=== PATIENT | female | born 1965 | race Caucasian/White ===

== ENCOUNTER 2023-10-12 07:15 | Outpatient (OUT) | payer OTHER, SELFPAY ==
[2023-10-12 07:36] LABS: Basophils Percent Auto 0.8 % (0.2-2.0); Eosinophils Absolute Auto 0.1 10^3/uL (0.0-0.7); Hematocrit 43.2 % (36.0-48.0); Hemoglobin 13.9 g/dL (12.0-16.0); Immature Granulocytes Abs Auto 0.01 10^3/uL (0.00-0.03); Immature Granulocytes Pct Auto 0.2 % (0.0-0.5); Lymphocytes Absolute Auto 1.6 10^3/uL (1.2-3.8); Lymphocytes Percent Auto 30.7 % (20.5-60.0); Mean Corpuscular HGB Conc 32.2 g/dL (29.9-35.2); Mean Corpuscular Volume 93.1 fL (81.0-99.0); Mean Platelet Volume 9.8 fL (9.5-13.5); Monocytes Absolute Auto 0.4 10^3/uL (0.3-0.8); Monocytes Percent Auto 6.8 % (1.7-12.0); Neutrophils Percent Auto 59.5 % (43.0-75.0); Platelet Count 358 10^3/uL (150-450); Red Blood Count 4.64 10^6/uL (4.20-5.40); Red Cell Distribution Width 13.2 % (11.0-15.0); White Blood Count 5.1 10^3/uL (4.0-11.0)
[2023-10-12 08:07] LABS: Estimated Average Glucose 111 mg/dL; Glycohemoglobin A1C 5.5 % (4.5-6.2)
[2023-10-12 08:19] LABS: Alanine Aminotransferase 32 U/L (14-59); Albumin Globulin Ratio 1.1; Albumin Level 3.7 g/dL (3.4-5.0); Alkaline Phosphatase 91 U/L (46-116); Anion Gap 11.2; Aspartate Amino Transferase 15 U/L (15-37); BUN Creatinine Ratio 19.5; Bilirubin Direct 0.1 mg/dL (0.0-0.2); Bilirubin Total 0.4 mg/dL (0.2-1.0); Calcium 8.8 mg/dL (8.5-10.1); Carbon Dioxide 28.5 mmol/L (21.0-32.0); Chloride 104 mmol/L (98-107); Cholesterol 203 mg/dL (<=200); Estimated GFR (African America >60 (>=60); Estimated GFR (Non-African Ame >60 (>=60); Free T3 2.82 pg/mL (2.18-3.98); Globulin 3.5 g/dL; Glucose 84 mg/dL (74-106); HDL Cholesterol 51 mg/dL (40-60); Potassium 3.7 mmol/L (3.5-5.1); Sodium 140 mmol/L (136-145); Thyroid Stimulating Hormone 0.087 uIU/mL (0.358-3.740); Total Protein 7.2 g/dL (6.4-8.2); Triglycerides 84 mg/dL (<=150); VLDL CHOLESTEROL 16.8 mg/dL
[2023-10-12 08:32] LABS: Free T4 1.27 ng/dL (0.76-1.46)
== END 2023-10-12 07:16 | disposition home or self-care (01) ==
LOC: LAB 07:19
PROVIDERS: PCP Family Medicine; Visit Provider Family Medicine
DX: Z00.00 Encounter for general adult medical examination without abnormal findings (principal); E03.9 Hypothyroidism, unspecified
CPT/HCPCS: 36415; 80048; 80061; 80076; 83036; 84439; 84443; 84481; 85025

== ENCOUNTER 2024-10-29 20:58 | Outpatient (REF) | payer OTHER, SELFPAY ==
--- OUTSIDE RECORDS SUMMARY | 2024-10-29 21:02 | XMS_ITS | CCD ---
Author Organization [facility] Care Team Providers [employer] Reading [employer] Name Role Phone Marybel Cohn Unavailable Jannette Butterfield Unavailable DR TITO AVELAR Admitting Unavailable VALENTINO, DR TITO De La Torre Attending Unavailable VALENTINO, DR TITO De La Torre Primary Care Unavailable WEST, DR LORNA Crenshaw Consulting Unavailable VALENTINO, DR TITO De La Torre Consulting Unavailable Tito Avelar MD Primary Care Provider Tito Avelar MD Unavailable TITO AVELAR Referring Unavailable TITO AVELAR Attending Unavailable Medications Current Medications Medication Drug Class(es) Dates Sig (Normalized) Sig (Original) ibuprofen 800 mg oral tablet (6 sources) Nonsteroidal Anti-inflammatory Drug Start: 10-22-2023 End: 10-21-2024 take 1 tablet by mouth in the morning, then take 1 tablet by mouth in the evening, then take 1 tablet by mouth at bedtime ibuprofen 800 MG tablet Indications: DDD (degenerative disc disease), lumbar Take 1 tablet (800 mg) by mouth in the morning and 1 tablet (800 mg) in the evening and 1 tablet (800 mg) before bedtime. 90 tablet 11 10/22/2023 10/21/2024 Active ibuprofen 800 MG tablet Take 400 mg by mouth every 6 (six) hours if needed for mild pain Active Motrin Not-Takin g levothyroxine sodium 0.1 mg oral tablet (7 sources) l-Thyroxine Start: 07-27-2024 take 1 tablet by mouth in the morning levothyroxine (Synthroid, Levoxyl) 100 MCG tablet Indications: Adult hypothyroidism (CMS/HCC) Take 1 tablet (100 mcg) by mouth in the morning. Take on an empty stomach.. 30 tablet 5 07/27/2024 Active Levothyroxine So dium Active lidocaine hydrochloride 20 mg/ml mucous membrane topical solution (1 source) Antiarrhythmic, Amide Local Anesthetic Start: 07-12-2022 Lidocaine Viscous 2% 5 ml swish around in mouth area and throat Mouth/Throat every 4 hours as needed Jul, Active 24 hr oxybutynin chloride 10 mg extended release oral tablet (7 sources) Cholinergic Muscarinic Antagonist Start: 10-22-2024 take 1 tablet by mouth once daily in the morning oxybutynin XL (Ditropan-XL) 10 MG 24 hr tablet Indications: Female stress incontinence TAKE 1 TABLET BY MOUTH ONCE DAILY IN THE MORNING 30 tablet 2 10/22/2024 Active Start: 07-27-2024 take 1 tablet by skye th once daily in the morning oxybutynin XL (Ditropan-XL) 10 MG 24 hr tablet Indications: Female stress incontinence TAKE 1 TABLET BY MOUTH EVERY MORNING 30 tablet 2 07/27/2024 Active Oxybutynin Activ e Problems Active Problems Problem Classification Problem Date Documented Date Episodic/Chronic Anxiety disorders (5 sources) Generalized anxiety disorder; Translations: [Generalized anxiety disorder] Onset: 10-07-2023 10-07-2023 Chronic Cancer of breast (2 sources) Personal history of malignant neoplasm of breast; Translations: [History of malignant neoplasm of breast] Onset: 10-11-2022 10-29-2024 Episodic Genitourinary symptoms and ill-defined conditions (5 sources) Female stress incontinence; Translations: [Stress incontinence (female) (male)] Onset: 10-07-2023 10-07-2023 Chronic Headache; including migraine (5 sources) Migraine without aura, not refractory ; Translations: [Migraine without aura, not intractable, without status migrainosus] Onset: 10-07-2023 10-07-2023 Chronic Immunizations and screening for infectious disease (2 sources) Contact with and (suspected) exposure to other viral communicable diseases; Translations: [Contact with and (suspected) exposure to other viral communicable diseases] Episodic Influenza (1 source) Influenza due to other identified influenza virus with other respiratory manifestations Episodic Other screening for suspected conditions (not mental disorders or infectious disease) (1 source) Encounter for screening mammogram for malignant neoplasm of breast; Translations: [ENC SCR MAMMO MALIG NEOPLASM BREAST] Onset: 03-02-2023 Episodic Other upper respiratory disease (2 sources) Allergic rhinitis; Translations: [Allergic rhinitis, unspecified] Chronic Prolapse of female genital organs (7 sources) Prolapse of female genital organs; Translations: [Female genital prolapse, unspecified] Onset: 07-28-2024 07-28-2024 Chronic Residual codes; unclassified (1 source) Family history of malignant neoplasm of trachea, bronchus and lung; Translations: [FAM HX MALIG NEOPLSM TRACH BRON LNG] Onset: 10-11-2022 Episodic Spondylosis; intervertebral disc disorders; other back problems (5 sources) Degeneration of lumbar intervertebral disc; Translations: [DDD (degenerative disc disease), lumbar] Onset: 10-07-2023 10-07-2023 Chronic Spondylosis; intervertebral disc disorders; other back problems (2 sources) Sciatica; Translations: [Sciatica, left side] Episodic Thyroid disorders (6 sources) Hypothyroidism; Translations: [Hypothyroidism, unspecified] Onset: 10-07-2023 10-07-2023 Chronic Past or Other Problems Problem Classification Problem Date Documented Da te Episodic/Chronic Open wounds of extremities (2 sources) Laceration without foreign body of right hand, initial encounter; Translations: [Laceration without foreign body of right index finger without damage to nail, initial encounter] Onset: 10-24-2021 Resolved: 10-24-2021 Episodic Results Test Name Value Interpretation Reference Range Facility CBC AUTO DIFFon 10-08-2022 BASO # 0.0 103/ul Normal 0.0-0.1 [facility] Comment on above: Performed By: #### C BC #### [facility] [address] [place] [address] Dr. Christina Hardwick Basophils/100 WBC (Bld) 0.4 % Normal 0.2-2.0 [facility] Comment on above: Performed By: #### C BC #### [facility] [address] [address] [address] Christina Hardwick EO # 0.1 103/ul Normal 0.0-0.7 [facility] Comment on above: Performed By: #### C BC #### [facility] [address] [place] [address] Dr. Christina Hardwick Eosinophils/100 WBC (Bld) 1.5 % Normal 0.9-7.0 [facility] Comment on above: Performed By: #### C BC #### [facility] [address] [place] [address] Dr. Christina Hardwick Erythrocyte distribution width (RBC) [Ratio] 13.4 % Normal 11.0-15.0 [facility] Comment on above: Performed By: #### C BC #### [facility] [address] [place] [address] Dr. Christina Hardwick Hematocrit (Bld) [Volume fraction] 39.6 % Normal 36.0-48.0 [facility] Comment on above: Performed By: #### C BC #### [facility] [address] [place] [address] Dr. Christina Hardwick Hemoglobin (Bld) [Mass/Vol] 13.0 g/dL Normal 12.0-16.0 [facility] Comment on above: Performed By: #### C BC #### [facility] [address] [place] [address] Dr. Christina Hardwick IG # 0.01 10e3/ul Normal 0.00-0.03 [facility] Comment on above: Performed By: #### C BC #### [facility] [address] [place] [address] Dr. Christina Hardwick IG % 0.2 % Normal 0.0-0.5 [facility] Comment on above: Performed By: #### C BC #### [facility] [address] [place] [address] Dr. Christina Hardwick LYMPH # 1.3 103/ul Normal 1.2-3.8 [facility] Comment on above: Performed By: #### C BC #### [facility] [address] [place] [address] Dr. Christina Hardwick Lymphocytes/100 WBC (Bld) 24.3 % Normal 20.5-60.0 [facility] Comment on above: Performed By: #### C BC #### [facility] [address] [place] [address] Dr. Christina Hardwick MANUAL DIFF REQ NO Normal [facility] Comment on above: Performed By: #### C BC #### [facility] [address] [address] [address] Christina Hardwick MCH (RBC) [Entitic mass] 29.1 pg Normal 26.7-34.0 [facility] Comment on above: Performed By: #### C BC #### [facility] [address] [place] [address] Dr. Christina Hardwick MCHC (RBC) [Mass/Vol] 32.8 g/dL Normal 29.9-35.2 [facility] Comment on above: Performed By: #### C BC #### [facility] [address] [place] [address] Dr. Christina Hardwick MCV (RBC) [Entitic vol] 88.8 fL Normal 81.0-99.0 [facility] Comment on above: Performed By: #### C BC #### [facility] [address] [place] [address] Dr. Christina Hardwick MONO # 0.4 103/ul Normal 0.3-0.8 [facility] Comment on above: Performed By: #### C BC #### [facility] [address] [place] [address] Dr. Christina Hardwick Monocytes/100 WBC (Bld) 6.6 % Normal 1.7-12.0 [facility] Comment on above: Performed By: #### C BC #### [facility] [address] [place] [address] Dr. Christina Hardwick NEUT # 3.6 103/ul Normal 1.4-6.5 [facility] Comment on above: Performed By: #### C BC #### [facility] [address] [place] [address] Dr. Christina Hardwick Neutrophils/100 WBC (Bld) 67.0 % Normal 43.0-75.0 [facility] Comment on above: Performed By: #### C BC #### [facility] [address] [place] [address] Dr. Christina Hardwick Platelet mean volume (Bld) [Entitic vol] 9.7 fL Normal 9.5-13.5 [facility] Comment on above: Performed By: #### C BC #### [facility] [address] [address] [address] Christina Hardwick PLT 372 103/ul Normal 150-450 [facility] Comment on above: Performed By: #### C BC #### [facility] [address] [address] [address] Christina Hardwick RBC 4.46 106/ul Normal 4.20-5.40 [facility] Comment on above: Performed By: #### C BC #### [facility] [address] [address] [address] Christina Hardwick WBC 5.3 103/ul Normal 4.0-11.0 [facility] Comment on above: Performed By: #### C BC #### [facility] [address] [place] [address] Dr. Christina Hardwick GLYCOHEMOGLOBIN A1Con 2022 ADA RECOMMENDATION SEE BELOW Normal [facility] Comment on above: Result Comment: ADA RECOMMENDED LIMIT 4.0 - 6.0 ADA THERAPEUTIC TARGET < 7.0 ACTION SUGGESTED > 7.0 Performed By: #### A 1C #### [facility] [address] [place] [address] Dr. Christina Hardwick Glucose [Mass/Vol] 120 mg/dL Normal [facility] Comment on above: Performed By: #### A 1C #### [facility] [address] [place] [address] Dr. Christina Hardwick HbA1c (Bld) [Mass fraction] 5.8 % Normal 4.5-6.2 [facility] Comment on above: Performed By: #### A 1C #### [facility] [address] [place] [address] Dr. Christina Hardwick LIPID PROFILEon 10-08-2022 CHOL-HDL RATIO NORM SEE BELOW Normal [facility] Comment on above: Result Comment: 3.3 - 4.4 LOW RISK 4.4 - 7.1 AVERAGE RISK 7.1 - 11.0 MODERATE RISK >11.0 HIGH RISK Performed By: #### L IVER, TSH, LIPID, BMP #### [facility] [address] [address] [address] Christina Hardwick Cholesterol [Mass/Vol] 174 mg/dL Normal <=200 [facility] Comment on above: Performed By: #### L IVER, TSH, LIPID, BMP #### [facility] [address] [address] [address] Christina Hardwick Cholesterol in HDL [Mass/Vol] 49 mg/dL Normal 40-60 [facility] Comment on above: Performed By: #### L IVER, TSH, LIPID, BMP #### [facility] [address] [address] [address] Christina Hardwick Cholesterol in LDL [Mass/Vol] 112.6 mg/dL Normal [facility] Comment on above: Performed By: #### L IVER, TSH, LIPID, BMP #### [facility] [address] [address] [address] Christina Hardwick Cholesterol.total/Ch olesterol in HDL [Mass ratio] 3.6 {ratio} Normal [facility] Comment on above: Performed By: #### L IVER, TSH, LIPID, BMP #### [facility] [address] [address] [address] Christina Hardwick HDL NORMAL > or = 60 mg/dl - LOW CARDIOVASCULAR RISK <40 mg/dl - HIGH CARDIOVASCULAR RISK Normal [facility] Comment on above: Performed By: #### L IVER, TSH, LIPID, BMP #### [facility] [address] [address] [address] Christina Hardwick LDL CALC NORMAL SEE BELOW Normal [facility] Comment on above: Result Comment: <100 mg/dl OPTIMAL 100 - 129 mg/dl NEAR OR ABOVE OPTIMAL 130 - 159 mg/dl BORDERLINE HIGH 160 - 189 mg/dl HIGH >190 mg/dl VERY HIGH Performed By: #### L IVER, TSH, LIPID, BMP #### [facility] [address] [address] [address] Christina Hardwick Triglyceride [Mass/Vol] 62 mg/dL Normal <=150 [facility] Comment on above: Performed By: #### L IVER, TSH, LIPID, BMP #### [facility] [address] [address] [address] Christina Hardwick VLDL CALC 12.4 mg/dL Normal [facility] Comment on above: Performed By: #### L IVER, TSH, LIPID, BMP #### [facility] [address] [address] [address] Christina Hardwick LIVER PROFILEon 10-08-2022 Albumin [Mass/Vol] 3.7 g/dL Normal 3.4-5.0 [facility] Comment on above: Performed By: #### L IVER, TSH, LIPID, BMP #### [facility] [address] [address] [address] Christina Hardwick Albumin/Globulin [Mass ratio] 1.1 {ratio} Normal [facility] Comment on above: Performed By: #### L IVER, TSH, LIPID, BMP #### [facility] [address] [place] [address] Dr. Christina Hardwick ALP [Catalytic activity/Vol] 95 U/L Normal 46-116 [facility] Comment on above: Performed By: #### L IVER, TSH, LIPID, BMP #### [facility] [address] [address] [address] Christina Hardwick ALT [Catalytic activity/Vol] 26 U/L Normal 14-59 [facility] Comment on above: Performed By: #### L IVER, TSH, LIPID, BMP #### [facility] [address] [address] [address] Christina Hardwick AST [Catalytic activity/Vol] 17 U/L Normal 15-37 [facility] Comment on above: Performed By: #### L IVER, TSH, LIPID, BMP #### [facility] [address] [address] [address] Christina Hardwick BILI, CONJUGATED 0.1 mg/dL Normal 0.0-0.2 [facility] Comment on above: Performed By: #### L IVER, TSH, LIPID, BMP #### [facility] [address] [address] [address] Christina Hardwick Bilirubin [Mass/Vol] 0.3 mg/dL Normal 0.2-1.0 [facility] Comment on above: Performed By: #### L IVER, TSH, LIPID, BMP #### [facility] [address] [address] [address] Christina Hardwick Globulin (S) [Mass/Vol] 3.3 g/dL Normal [facility] Comment on above: Performed By: #### L IVER, TSH, LIPID, BMP #### [facility] [address] [address] [address] Christina Hardwick Protein [Mass/Vol] 7.0 g/dL Normal 6.4-8.2 [facility] Comment on above: Performed By: #### L IVER, TSH, LIPID, BMP #### [facility] [address] [address] [address] Christina Hardwick MG MAMM SCREEN 3D MIGUEL CADon 10-08-2022 MG MAMM SCREEN 3D MIGUEL CAD Patient: EVELIN KRAFT Exam Date: 10/08/2022 : 1965 Gender:F Ordering : DR TITO AVELAR . Admission #: [id number] Family : Order #: [id number] CLICK HERE TO VIEW EXAM RADIOLOGY REPORT PROCEDURE: MAMMOGRAM SCREENING 3D BILATERAL CAD COMPARISON: MG MAMM SCREEN MIGUEL W CAD, 02/25/2018. MG MAMM SCREEN MIGUEL W CAD, 07/10/2019. INDICATIONS: Screening mammography Calculator Name NCI Breast Cancer Risk Assessment Tool 5 Year Breast Cancer Risk n/a% Lifetime Breast Cancer Risk n/a% Personal Breast Cancer Yes, Rt Breast CA 2005 Personal Ovarian Cancer No Treatments Radiation, Chemotherapy, Tamoxifen for 5 years Family Cancers Father with lung cancer at age 85. LOCATION: [facility] BREAST COMPOSITION: Extremely dense, which lowers the sensitivity of mammography. FINDINGS: DIAGNOSTIC CATEGORY 2--BENIGN FINDING. NO CHANGE FROM COMPARISON. Scattered benign-appearing calcifications are present. RIGHT BREAST: No significant suspicious finding. Asymmetrically small. Areas of architectural distortion deep to multiple linear scar markers. LEFT BREAST: No significant suspicious finding. Stable micro clip marker 6 o'clock mid breast RECOMMENDATIONS: ROUTINE MAMMOGRAM AND CLINICAL EVALUATION IN 12 MONTHS. PLEASE NOTE: A NORMAL MAMMOGRAM DOES NOT EXCLUDE THE POSSIBILITY OF BREAST CANCER. A CLINICALLY SUSPICIOUS PALPABLE LUMP SHOULD BE BIOPSIED. Dictated by: Lorna Raygoza MD on 10/08/2022 at 09:08 Approved by: Lorna Raygoza MD on 10/08/2022 at 09:12 Normal [facility] PROF CHEM 8 (BAS METB)on Anion gap [Moles/Vol] 10.6 mmol/L Normal [facility] Comment on above: Performed By: #### L IVER, TSH, LIPID, BMP #### [facility] [address] [place] [address] Dr. Christina Hardwick Calcium [Mass/Vol] 8.7 mg/dL Normal 8.5-10.1 [facility] Comment on above: Performed By: #### L IVER, TSH, LIPID, BMP #### [facility] [address] [place] [address] Dr. Christina Hardwick Chloride [Moles/Vol] 105 mmol/L Normal 98-107 [facility] Comment on above: Performed By: #### L IVER, TSH, LIPID, BMP #### [facility] [address] [place] [address] Dr. Christina Hardwick CO2 [Moles/Vol] 28.4 mmol/L Normal 21.0-32.0 [facility] Comment on above: Performed By: #### L IVER, TSH, LIPID, BMP #### [facility] [address] [place] [address] Dr. Christina Hardwick Creatinine [Mass/Vol] 0.66 mg/dL Normal 0.55-1.02 [facility] Comment on above: Performed By: #### L IVER, TSH, LIPID, BMP #### [facility] [address] [place] [address] Dr. Christina Hardwick EGFR-AF NORTH KOREAN >60 Normal >=60 [facility] Comment on above: Performed By: #### L IVER, TSH, LIPID, BMP #### [facility] [address] [place] [address] Dr. Christina Hardwick EGFR-NON AF [place]OREAN >60 Normal >=60 [facility] Comment on above: Performed By: #### L IVER, TSH, LIPID, BMP #### [facility] [address] [address] [address] Christina Hardwick Glucose [Mass/Vol] 92 mg/dL Normal 74-[address] [facility] Comment on above: Performed By: #### L IVER, TSH, LIPID, BMP #### [facility] [address] [place] [address] Dr. Christina Hardwick Potassium [Moles/Vol] 4.0 mmol/L Normal 3.5-5.1 [facility] Comment on above: Performed By: #### L IVER, TSH, LIPID, BMP #### [facility] [address] [place] [address] Dr. Christina Hardwikc Sodium [Moles/Vol] 140 mmol/L Normal 136-[address] [facility] Comment on above: Performed By: #### L IVER, TSH, LIPID, BMP #### [facility] [address] [place] [address] Dr. Christina Hardwick Urea nitrogen [Mass/Vol] 14.0 mg/dL Normal 7.0-18.0 [facility] Comment on above: Performed By: #### L IVER, TSH, LIPID, BMP #### [facility] [address] [place] [address] Dr. Christina Hardwick Urea nitrogen/Creatinine [Mass ratio] 21.2 mg/mg Normal [facility] Comment on above: Performed By: #### L IVER, TSH, LIPID, BMP #### [facility] [address] [place] [address] Dr. Christina Hardwick TSHon 10-08-2022 TSH 0.016 uIU/mL Critically low 0.358-3.740 [facility] Comment on above: Performed By: #### L IVER, TSH, LIPID, BMP #### [facility] [address] [place] [address] Dr. Christina Hardwick COVID/FLU/RSV RT-PCRon 07-12 SARS-CoV-2 (COVID-19) RNA HUMBERTO+probe Ql (Unsp spec) Negative [facility] Other COVID/FLU/RSV RT-PCR Positive [employer] Other COVID/FLU/RSV RT-PCR Negative [employer] Other Quick Strepon 07-12-2022 S. pyogenes Org specific cx Ql (Throat) Negative [facility] Other [facility] Other XR lumbar spine min 4V*on XR lumbar spine min 4V* [facility] [address] [place] [address] XRay Report Signed Patient: Evelin Kraft MR#: [id number] : 1965 Acct:[id number] Age/Sex: 55 / F ADM Date: 11/18/20 Loc: [facility] Room: Type: [facility] Attending Dr: Jannette HOBBS Ordering Provider: JANNETTE BUTTERFIELD Date of Service: 11/18/20 XR/XR lumbar spine min 4V*: M54.5 Copies to: JANNETTE BUTTERFIELD Lumbar spine 11/18/2020. CLINICAL DATA: Chronic low back pain. FINDINGS: 6 views of the lumbar spine were obtained. Vertebral alignment is normal. Mild disc space narrowing and discovertebral degenerative changes are identified. Facet arthritis is also seen in the lower lumbar spine. No acute vertebral fracture is visualized. No spondylolysis is noted on the right or left. The sacroiliac joints are intact. XR/XR lumbar spine min 4V* IMPRESSION: Disc space narrowing and degenerative changes. No acute bony abnormality. Impression dictated by: Carlito Cortez Jr., M.D.11/18/2020 1:52 PM Dictation Location: [place] [address] Transcribed By: [facility] 11/18/20 1352 Dictated By: Carlito Cortez Jr, MD 11/18/20 1349 Signed By: 11/18/20 1352 Normal [facility] Vital Signs Date Time Vital Sign Value Performing Clinician Facility 10-29-2024 09:08-0400 Body height 160 cm Tito Avelar MD Work Phone: [facility] 10-29-2024 09:08-0400 Body mass index (BMI) [Ratio] 23.38 kg/m2 Tito Avelar MD Work Phone: [facility] 10-29-2024 09:08-0400 Body temperature 97.5 [degF] Tito Avelar MD Work Phone: [facility] 10-29-2024 09:08-0400 Body weight 59.88 kg Tito Avelar MD Work Phone: [facility] 10-29-2024 09:08-0400 Diastolic blood pressure 70 mm[Hg] Tito Avelar MD Work Phone: [facility] 10-29-2024 09:08-0400 Heart rate 68 /min Tito Avelar MD Work Phone: [facility] 10-29-2024 09:08-0400 Respiratory rate 22 /min Tito Avelar MD Work Phone: [facility] 10-29-2024 09:08-0400 SaO2% (BldA) [Mass fraction] 98 % Tito Avelar MD Work Phone: [facility] 10-29-2024 09:08-0400 Systolic blood pressure 118 mm[Hg] Tito Avelar MD Work Phone: [facility] 07-28-2024 09:11-0500 Body height 160 cm Tito Avelar MD Work Phone: [facility] 07-28-2024 09:11-0500 Body mass index (BMI) [Ratio] 22.85 kg/m2 Tito Avelar MD Work Phone: [facility] 07-28-2024 09:11-0500 Body temperature 98.01 [degF] Tito Avelar MD Work Phone: [facility] 07-28-2024 09:11-0500 Body weight 58.51 kg Tito Avelar MD Work Phone: [facility] 07-28-2024 09:11-0500 Diastolic blood pressure 70 mm[Hg] Tito Avelar MD Work Phone: [facility] 07-28-2024 09:11-0500 Heart rate 71 /min Tito Avelar MD Work Phone: [facility] 07-28-2024 09:11-0500 Respiratory rate 22 /min Tito Avelar MD Work Phone: [facility] 07-28-2024 09:11-0500 SaO2% (BldA) [Mass fraction] 98 % Tito Avelar MD Work Phone: [facility] 07-28-2024 09:11-0500 Systolic blood pressure 126 mm[Hg] Tito Avelar MD Work Phone: [facility] 07-12-2022 10:15-0500 Body height 162.56 cm Jannette Beattyault Other [employer] Other 07-12-2022 10:15-0500 Body mass index (BMI) [Ratio] 21.8 kg/m2 Jannette Beattyault Other [employer] Other 07-12-2022 10:15-0500 Body temperature 99.6 [degF] Jannette Beattyault Other [employer] Other 07-12-2022 10:15-0500 Body weight 57.61 kg Jannette Beattyault Other [employer] Other 07-12-2022 10:15-0500 Diastolic blood pressure 76 mm[Hg] Jannette Navin Other [employer] Other 07-12-2022 10:15-0500 Respiratory rate 18 /min Jannette Navin Other [employer] Other 07-12-2022 10:15-0500 SaO2% (BldA) [Mass fraction] 99 % Jannette Butterfield Other [employer] Other 07-12-2022 10:15-0500 Systolic blood pressure 119 mm[Hg] Jannette [place] Other [employer] Other 10-24-2021 17:20-0400 Body height 162.56 cm Marybel Cohn Other [employer] Other 10-24-2021 17:20-0400 Body mass index (BMI) [Ratio] 21.8 kg/m2 Marybel Cohn Other [employer] Other 10-24-2021 17:20-0400 Body temperature 99 [degF] Marybel Cohn Other [employer] Other 10-24-2021 17:20-0400 Body weight 57.61 kg Marybel Cohn Other [employer] Other 10-24-2021 17:20-0400 Diastolic blood pressure 95 mm[Hg] Marybel Cohn Other [employer] Other 10-24-2021 17:20-0400 Respiratory rate 18 /min Marybel Cohn Other [employer] Other 10-24-2021 17:20-0400 SaO2% (BldA) [Mass fraction] 100 % Marybel Cohn Other [employer] Other 10-24-2021 17:20-0400 Systolic blood pressure 138 mm[Hg] Marybel Lalit Other [employer] Other Encounters Encounter Date Encounter Type Care Provider Facility Start: 10-29-2024 End: 10-29-2024 Bamboo flowsheet Tito Avelar MD Work Phone: [facility] Start: 10-29-2024 End: 10-29-2024 Bamboo flowsheet Tito Avelar MD Work Phone: [facility] Start: 10-29-2024 End: 10-29-2024 Patient encounter procedure Tito Avelar MD Work Phone: [facility] Work Phone: Start: 10-29-2024 End: 10-29-2024 Periodic preventive med est patient 40-64yrs Tito Avelar MD Work Phone: [facility] Comment on above: Annual physical exam (Primary Dx); Adult hypothyroidism (CMS/HCC); Midline cystocele Start: 10-26-2024 ambulatory TITO AVELAR Not Availa ble Start: 07-28-2024 End: 07-28-2024 Bamboo flowsheet Tito Avelar MD Work Phone: [facility] Start: 07-28-2024 End: 07-28-2024 Bamboo flowsheet Tito Avelar MD Work Phone: [facility] Start: 07-28-2024 End: 07-28-2024 Office outpatient visit 15 minutes Tito Avelar MD Work Phone: [facility] Comment on above: Female genital prola pse, unspecified type (Primary Dx) Start: 07-28-2024 End: 07-28-2024 ambulatory TITO AVELAR Not Available Start: 10-10-2023 Patient encounter procedure Tito Avelar MD Work Phone: [facility] Start: 10-11-2022 Encounter for genera l adult medical examination without abnormal findings DR TITO AVELAR [facility] Start: 10-08-2022 End: 10-09-[address] TITO AVELAR Facility: Start: 10-08-2022 End: 10-09-2022 Encounter for general adult medical examination without abnormal findings DR TITO AVELAR Facility:[facility] Start: 07-12-2022 End: 07-12-2022 ambulatory Jannette [place] Other [employer] Other Start: 07-12-2022 Office outpatient vi sit 25 minutes Jannette Navin [facility] Start: 10-24-2021 End: 10-24-2021 ambulatory Marybel Cohn Other [employer] Other Start: 10-24-2021 Office outpatient vi sit 15 minutes Marybel Cohn [facility] Procedures Date Procedure Procedure Detail Performing Clinician Start: 10-26-2024 Mammography Tito zuniga MD Work Phone: Start: 03-20-2017 Colonoscopy Tito zuniga MD Work Phone: Plan of Treatment Date Care Activity Detail Author Start: 03-20-2027 Screening for malign ant neoplasm of colon [facility] Start: 10-26-2025 Screening for malign ant neoplasm of breast Mammogram [facility] Start: 04-28-2025 End: 04-28-2025 Patient encounter procedure 04/28/2025 8:00 AM EDT Office Visit [facility] [address] [place] [address] Tito Avelar MD [address] [place] [address] [facility] Start: 10-29-2024 End: 10-29-2025 Basic metabolic 1998 panel - Serum or Plasma Basic metabolic panel Lab Routine Annual physical exam Expected: 10/29/2024 (Approximate), Expires: 10/29/2025 [facility] Comment on above: Expected: 10/29/2024 (Approximate), Expires: 10/29/2025 Start: 10-29-2024 End: 10-29-2025 CBC W Auto Differential panel - Blood CBC and differential Lab Routine Annual physical exam Expected: 10/29/2024 (Approximate), Expires: 10/29/2025 [facility] Comment on above: Expected: 10/29/2024 (Approximate), Expires: 10/29/2025 Start: 10-29-2024 End: 10-29-2025 Hemoglobin A1c/Hemoglobin.total in Blood Hemoglobin A1c Lab Routine Annual physical exam Expected: 10/29/2024 (Approximate), Expires: 10/29/2025 [facility] Work Phone: Comment on above: Expected: 10/29/2024 (Approximate), Expires: 10/29/2025 Start: 10-29-2024 End: 10-29-2025 Hepatic function 2000 panel - Serum or Plasma Hepatic function panel Lab Routine Annual physical exam Expected: 10/29/2024 (Approximate), Expires: 10/29/2025 [facility] Comment on above: Expected: 10/29/2024 (Approximate), Expires: 10/29/2025 Start: 10-29-2024 End: 10-29-2025 Lipid 1996 panel - Serum or Plasma Lipid panel Lab Routine Annual physical exam Expected: 10/29/2024 (Approximate), Expires: 10/29/2025 [facility] Comment on above: Expected: 10/29/2024 (Approximate), Expires: 10/29/2025 Start: 10-29-2024 End: 10-29-2025 Thyrotropin [Units/volume] in Serum or Plasma TSH Lab Routine Annual physical exam Expected: 10/29/2024 (Approximate), Expires: 10/29/2025 [facility] Comment on above: Expected: 10/29/2024 (Approximate), Expires: 10/29/2025 Start: 10-29-2024 End: 10-29-2025 Thyroxine (T4) free [Mass/volume] in Serum or Plasma T4, free Lab Routine Adult hypothyroidism (CMS/HCC) Expected: 10/29/2024 (Approximate), Expires: 10/29/2025 [facility] Comment on above: Expected: 10/29/2024 (Approximate), Expires: 10/29/2025 Start: 10-29-2024 End: 10-29-2024 Patient encounter procedure [facility] Comment on above: Arrived Start: 07-28-2024 End: 07-28-2024 Patient encounter procedure 07/28/2024 9:00 AM EST Office Visit [facility] [address] [place] [address] Tito Avelar MD [address] [place] [address] Arrived [facility] Comment on above: Arrived Start: 04-12-2024 Influenza vaccination Influenza Vacc ine (#1) [facility] Start: 2005 Screening for malign ant neoplasm of breast Mammogram [facility] Start: 1995 Screening for malign ant neoplasm of cervix [facility] Start: 1986 Screening for malign ant neoplasm of cervix Pap Smear [facility] Start: 1965 Screening for malign ant neoplasm of colon [facility] Immunizations Immunization Date Immunization Notes Care Provider Fa cili 10-24-2021 tetanus toxoid, reduced diphtheria toxoid, and acellular pertussis vaccine, adsorbed Marybel Cohn Other [employer] Other Payers Date Payer Category Payer Private Health Insurance [employer] [id number] 1965 Unknown [id number] 1965 Unknown [id number] 1965 Unknown [id number] 1959 Unknown [id number] 1959 Unknown Social History Date Type Detail Facility Unknown if ever smoked [employer] Other Start: 07-28-2024 End: 10-29-2024 Sex Assigned At [employer] Other Start: 10-10-2023 Tobacco smoking status NHIS Never smoked tobacco [facility] Start: 10-10-2023 Tobacco use and exposure Smokeless tobacco non-user [facility] Start: 07-28-2024 End: 10-29-2024 History of Social function [facility] Start: 1965 Sex assigned at Not on file [facility] History of Present illness Narrative 10-29-2024 Tito Avelar MD - 10/29/2024 9:52 AM Matthieu Avelar MD - 10/29/2024 9:52 AM Matthieu Avelar MD - 10/29/2024 9:00 AM EDT Note Date & Type Note Facility 10-29-2024 History of Presen t illness Narrative Associated Problem(s): Prolapse of female pelvic organs Patient with prolapse but denies any symptoms or problems. Discussed options including surgical repair and pessary. Patient declines intervention and wants to monitor. Associated Problem(s): Annual physical exam Due for labs. Will notify of results by mail or call with abnormals. Continue monthly self breast exams and yearly mammograms. Recommend balanced diet and regular aerobic activity 30 minutes per day 5-6 days per week. Activity reduces risk of osteoporosis. Ensure adequate calcium and Vit D intake, may need to supplement. Tetanus booster every 10 years. Colonoscopy every 10 years. Avoid excessive sun exposure or tanning beds Images from the original note were not included. Subjective Patient ID: Evelin Kraft is a 59 y.o. female who presents for Gynecologic Exam. Presents for annual PE and PAP. Patient doing well today. Weight unchanged over the past year. Active with grand kids but no regular exercise or activity. Tries to watch diet and eat healthy. Increased fruits and vegetables. Smaller portions and limits snacking. Tries to limit total daily calories. Due for labs. Recent mammogram normal. Continued to have bladder prolapse and notice sticking out in front of vaginal opening. Doesn't bother patient and not painful. No bleeding. No problems urinating but at times needs to push back inside so can void. History of abnormal Pap: Y__ N_X_ Performs monthly self breast exams: Y_X_ N__ Family history diseases of female organs: Y_X_ N__ Patient with breast cancer around age 40 treated with radiation and chemo. Currently on Hormone Replacement Therapy: Y__ N_X_ Control: OCP__ Depo__ Condoms__ Patch__ Abstinence__ Tubal__ Nuva Ring__Menopause_X_. Menopause at age: 40-42 Vaginal discharge: Y__ N_X_ Concern STD exposure: Y__ N_X_ Review of Systems Respiratory: Negative for cough, shortness of breath and wheezing. Cardiovascular: Negative for chest pain and palpitations. Gastrointestinal: Negative for abdominal pain, diarrhea, nausea and vomiting. Genitourinary: Negative for dysuria. Objective Physical Exam Exam conducted with a employment security officer present. Constitutional: General: She is not in acute distress. Appearance: Normal appearance. HENT: Head: Normocephalic. Right Ear: Tympanic membrane normal. Left Ear: Tympanic membrane normal. Eyes: Extraocular Movements: Extraocular movements intact. Pupils: Pupils are equal, round, and reactive to light. Cardiovascular: Rate and Rhythm: Normal rate and regular rhythm. Heart sounds: No murmur heard. No friction rub. No gallop. Pulmonary: Effort: Pulmonary effort is normal. Breath sounds: Normal breath sounds. No wheezing, rhonchi or rales. Abdominal: General: Bowel sounds are normal. There is no distension. Palpations: Abdomen is soft. Tenderness: There is no abdominal tenderness. There is no guarding or rebound. Genitourinary: General: Normal vulva. Exam position: Lithotomy position. Vagina: Prolapsed vaginal muñoz present. Cervix: Normal. Uterus: Normal. Adnexa: Right adnexa normal and left adnexa normal. Musculoskeletal: General: No swelling or tenderness. Cervical back: Neck supple. Right lower leg: No edema. Left lower leg: No edema. Skin: Findings: No erythema or rash. Neurological: General: No focal deficit present. Mental Status: She is alert and oriented to person, place, and time. Cranial Nerves: No cranial nerve deficit. Motor: No weakness. Gait: Gait normal. Assessment/Plan Problem List Items Addressed This Visit Adult hypothyroidism (CMS/HCC) Relevant Orders T4, free Annual physical exam - Primary Due for labs. Will notify of results by mail or call with abnormals. Continue monthly self breast exams and yearly mammograms. Recommend balanced diet and regular aerobic activity 30 minutes per day 5-6 days per week. Activity reduces risk of osteoporosis. Ensure adequate calcium and Vit D intake, may need to supplement. Tetanus booster every 10 years. Colonoscopy every 10 years. Avoid excessive sun exposure or tanning beds Relevant Orders Hemoglobin A1c Basic metabolic panel CBC and differential Hepatic function panel Lipid panel TSH Prolapse of female pelvic organs Patient with prolapse but denies any symptoms or problems. Discussed options including surgical repair and pessary. Patient declines intervention and wants to monitor. documented in this encounter [facility] History of Present illness Narrative 07-28-2024 Tito Avelar MD - 07/28/2024 9:37 AM Morgan Avelar MD - 07/28/2024 9:00 AM EST Note Date & Type Note Facility 07-28-2024 History of Presen t illness Narrative Associated Problem(s): Prolapse of female pelvic organs Patient describes prolapse but denies any symptoms or problems. Discussed options including surgical repair and pessary. Patient declines intervention and wants to monitor. Images from the original note were not included. Subjective Patient ID: Evelin Kraft is a 59 y.o. female who presents for Follow-up (Pelvic organ falling out. clm). Concerned of pelvic organs falling out. Notice bulging outside of vaginal area for several years but getting worse. Seen by bead wire taper years ago and normal exam. Reports able to feel pressure in vaginal area but no pain. No pain with intercourse. No urinary symptoms and no hesitancy or incontinence. Reports last PAP several years ago, physician no longer in area. Review of Systems Respiratory: Negative for cough, shortness of breath and wheezing. Cardiovascular: Negative for chest pain and palpitations. Gastrointestinal: Negative for abdominal pain, diarrhea, nausea and vomiting. Genitourinary: Negative for dysuria. Objective Physical Exam Constitutional: General: She is not in acute distress. Appearance: Normal appearance. HENT: Head: Normocephalic. Right Ear: Tympanic membrane normal. Left Ear: Tympanic membrane normal. Eyes: Extraocular Movements: Extraocular movements intact. Pupils: Pupils are equal, round, and reactive to light. Cardiovascular: Rate and Rhythm: Normal rate and regular rhythm. Heart sounds: No murmur heard. No friction rub. No gallop. Pulmonary: Effort: Pulmonary effort is normal. Breath sounds: Normal breath sounds. No wheezing, rhonchi or rales. Abdominal: General: Bowel sounds are normal. There is no distension. Palpations: Abdomen is soft. Tenderness: There is no abdominal tenderness. There is no guarding or rebound. Musculoskeletal: Cervical back: Neck supple. Right lower leg: No edema. Left lower leg: No edema. Neurological: Mental Status: She is alert. Assessment/Plan Problem List Items Addressed This Visit Prolapse of female pelvic organs - Primary Patient describes prolapse but denies any symptoms or problems. Discussed options including surgical repair and pessary. Patient declines intervention and wants to monitor. documented in this encounter [facility] Evaluation note 07-12-2022 Note Date & Type Note Facility 07-12-2022 Evaluation note Encounter Date Diagnosis Assessment Notes Jul, Contact with and (suspected) exposure to other viral communicable diseases (ICD-10 - Z20.828) Jul, Influenza A (ICD-10 - J10.1) Symptoms presented today are related to the Flu. May use OTC medications such as Mucinex DM, Flu meds, etc. Kids can use Dimatapp or Delsym. Continue tylenol/ibu for general discomfort. Encourage fluids. Antibiotics will not treat the flu. Symptoms should improve within the next 4-7 days., Influenza material was printed [employer] Other Evaluation note 10-24-2021 Note Date & Type Note Facility 10-24-2021 Evaluation note Encounter Date Diagnosis Assessment Notes Oct, Laceration of right hand without foreign body, initial encounter (ICD-10 - S61.411A) -Tdap updated in office -Keep dressing in place for the next 48 hours, unless it gets dirty or wet, then change dressing, apply nonstick telfa -After 48 hours may keep LENORE unless risk of getting dirty or irritated or if it begins to drain -Wash wound BID with warm soapy water, avoid scrubbing, pat dry -May wash hands and shower as normal, but do not soak hand in water, avoid dirty dish water, tubs, etc. -Avoid using ointments -Watch for s/sx of infection: redness, swelling, drainage, pain, foul odor, red streaking, fever, chills: if occur follow up with UC or PCP right away -If fingers or hand becomes cold, pale, tingling, numbness, unable to move finger seek immediate care by ER Oct, Laceration of right index finger without foreign body without damage to nail, initial encounter (ICD-10 - S61.210A) See above treatment plan [employer] Other Evaluation note Note Date & Type Note Facility Evaluation note Diagnosis Annual physical exam- Primary Routine general medical examination at a health care facility Adult hypothyroidism (CMS/HCC) Unspecified hypothyroidism Screening mammogram for breast cancer Female genital prolapse, unspecified type- Primary documented in this encounter [facility] Evaluation note Note Date & Type Note Facility Evaluation note Diagnosis Annual physical exam- Primary Routine general medical examination at a health care facility Adult hypothyroidism (CMS/HCC) Unspecified hypothyroidism Screening mammogram for breast cancer Female genital prolapse, unspecified type- Primary Annual physical exam- Primary Routine general medical examination at a health care facility Adult hypothyroidism (CMS/HCC) Unspecified hypothyroidism Midline cystocele Cystocele, midline documented in this encounter [facility] History general Narrative - Reported Note Date & Type Note Facility History general Narrative - Reported Type Medical History 2004 Breast cancer Medical History Hypothyroidism Medical History bladder trouble Surgical History breast cancer surgery 2005 Hospitalization History see above [employer] Other Summary Purpose Family History No Family History Records FoundNo Family History Records FoundNo Family History Records Found Advance Directives No Advanced Directives Records FoundNo Advanced Directives Records FoundNo Advanced Directives Records Found Additional Source Comments INFORMATION SOURCE (unrecogn ized section and content) DATE CREATED AUTHOR 12/01/2020 [facility] DATE CREATED AUTHOR AUTHOR'S ORGANIZ ATION 10/29/2022 [facility] DATE CREATED AUTHOR AUTHOR'S ORGANIZ ATION 10/27/2024 [facility] Special[facility] EPIC REASON FOR VISIT (unrecogniz ed section and content) Reason Comments Follow-up Pelvic organ falling out. clm Reason Comments Gynecologic Exam Care Teams (unrecognized sec tion and content) [employer] Reading Teacher Relationship Specialty Start Date End Date Tito Avelar MD [address] [place] [address] PCP - General Family Medicine 09/13/23 Tito Avelar MD [address] [place] [address] PCP - Medical [employer] 10/09/19 08/11/99 [employer] Reading Teacher Relationship Specialty Start Date End Date Tito Avelar MD [address] [place] [address] PCP - General Family Medicine 09/13/23 Tito Avelar MD [address] [place] [address] PCP - Medical [employer] 10/09/19 08/11/99 [employer] Reading Teacher Relationship Specialty Start Date End Date Tito Avelar MD [address] [place] [address] PCP - General Family Medicine 09/13/23 Tito Avelar MD [address] [place] [address] PCP - [facility] [employer] 10/09/19 08/11/99 [employer] Reading Teacher Relationship Specialty Start Date End Date Tito Avelar MD [address] [place] [address] PCP - General Family [facility] 09/13/23 Tito Avelar MD [address] [place] [address] PCP - [facility] 10/09/19 08/11/99 FOR RECORDS PERTAINING TO PATIENTS WHO ARE OR HAVE BEEN ENROLLED IN A CHEMICAL DEPENDENCY/SUBSTANCEABUSE PROGRAM, SOME INFORMATION MAY BE OMITTED. This clinical summary was aggregated from multiple sources. Caution should be exercised in using it in the provision of clinical care. This summary normalizes information from multiple sources, and as a consequence, information in this document may materially change the coding, format and clinical context of patient data. In addition, data may be omitted in some cases. CLINICAL DECISIONS SHOULD BE BASED ON THE PRIMARY CLINICAL RECORDS. [facility]. provides no warranty or guarantee of the accuracy or completeness of information in this document.
[2024-11-03 14:10] LABS: Age Gdln ACOG Testing Note (.); HPV Aptima Negative (Negative); IGP, Aptima HPV, rfx 16/18,45 Note (.)
== END 2024-10-29 20:59 | disposition home or self-care (01) ==
LOC: LAB 20:58
PROVIDERS: PCP Family Medicine; Visit Provider Family Medicine
DX: Z12.4 Encounter for screening for malignant neoplasm of cervix (principal)
CPT/HCPCS: 87624; 88175

== ENCOUNTER 2024-11-13 07:50 | Outpatient (OUT) | payer OTHER, SELFPAY ==
[2024-11-13 08:19] LABS: Basophils Percent Auto 0.8 % (0.2-2.0); Eosinophils Absolute Auto 0.1 10^3/uL (0.0-0.7); Eosinophils Percent Auto 2.9 % (0.9-7.0); Hematocrit 42.6 % (36.0-48.0); Hemoglobin 14.2 g/dL (12.0-16.0); Lymphocytes Absolute Auto 1.5 10^3/uL (1.2-3.8); Lymphocytes Percent Auto 40.1 % (20.5-60.0); Mean Corpuscular HGB Conc 33.3 g/dL (29.9-35.2); Mean Corpuscular Hemoglobin 30.2 pg (26.7-34.0); Mean Corpuscular Volume 90.6 fL (81.0-99.0); Mean Platelet Volume 9.4 fL (9.5-13.5); Monocytes Absolute Auto 0.3 10^3/uL (0.3-0.8); Monocytes Percent Auto 7.2 % (1.7-12.0); Neutrophils Absolute Auto 1.9 10^3/uL (1.4-6.5); Platelet Count 330 10^3/uL (150-450); Red Cell Distribution Width 12.3 % (11.0-15.0); White Blood Count 3.8 10^3/uL (4.0-11.0)
[2024-11-13 13:37] LABS: Alanine Aminotransferase 23 U/L (14-59); Albumin Globulin Ratio 1.2; Albumin Level 3.7 g/dL (3.4-5.0); Alkaline Phosphatase 95 U/L (46-116); Anion Gap 12.9; Aspartate Amino Transferase 16 U/L (15-37); BUN Creatinine Ratio 18.8; Bilirubin Direct 0.1 mg/dL (0.0-0.2); Bilirubin Total 0.4 mg/dL (0.2-1.0); Calcium 9.1 mg/dL (8.5-10.1); Carbon Dioxide 28.1 mmol/L (21.0-32.0); Chloride 107 mmol/L (98-107); Chol HDL Ratio 4.3; Cholesterol 200 mg/dL (<=200); Estimated GFR (African America >60 (>=60 mL/min/1.73m^2); Estimated GFR (Non-African Ame >60 (>=60 mL/min/1.73m^2); Free T4 1.25 ng/dL (0.76-1.46); Glucose 87 mg/dL (74-106); HDL Cholesterol 47 mg/dL (40-60); LDL Cholesterol Calculated 133.6 mg/dL; Sodium 144 mmol/L (136-145); Thyroid Stimulating Hormone 0.033 uIU/mL (0.358-3.740); Total Protein 6.7 g/dL (6.4-8.2); Triglycerides 97 mg/dL (<=150); VLDL CHOLESTEROL 19.4 mg/dL
[2024-11-13 14:35] LABS: Estimated Average Glucose 114 mg/dL; Glycohemoglobin A1C 5.6 % (4.5-6.2)
== END 2024-11-13 07:51 | disposition home or self-care (01) ==
LOC: LAB 07:51
PROVIDERS: PCP Family Medicine; Visit Provider Family Medicine
DX: Z00.00 Encounter for general adult medical examination without abnormal findings (principal); E03.9 Hypothyroidism, unspecified
CPT/HCPCS: 36415; 80048; 80061; 80076; 83036; 84439; 84443; 85025

== ENCOUNTER 2024-12-28 12:38 | Emergency (ER) | payer OTHER, SELFPAY ==
[2024-12-28 12:41] VITALS: BP 177/98; PULSE 60; TEMP 36.5; O2SAT 100; BMI 22.3
--- NOTE | 2024-12-28 12:48 | ECG_ITS ---
The [facility] Test Date: 2024-12-28 Pat Name: EVELIN KRAFT Department: Room: - Gender: Female Belt Tender: : 1965 Requested By: [id number] Order Number: [id number] Reading MD: DARLEEN POWERS M.D. Measurements Intervals [place] Rate: 54 P: 38 RI: 152 QRS: -1 QRSD: 82 T: 38 QT: 440 QTc: 425 Interpretive Statements 1100 Sinus rhythm 3413 Cannot rule out septal myocardial infarction, probably old 9150 abnormal ECG No previous ECG available for comparison Electronically Signed On 12-28-2024 17:52:23 EDT by DARLEEN POWERS M.D.
--- NOTE | 2024-12-28 12:49 | ED_ITS ---
HPI HPI - General Adult General Chief complaint: Abdominal Pain Stated complaint: STOMACH PAINS Time Seen by Provider: 12/28/24 12:40 Mode of arrival: walk-in History of Present Illness HPI narrative: The patient is a 59-year-old female who who presents to the emergency department today for evaluation for concerns for GI symptoms of nausea/vomiting/diarrhea. She endorses yesterday she had some generalized abdominal discomfort and states today she began feeling nauseous and had 7 episodes of emesis prior to evaluation in the ER. She reports associated symptoms of intermittent diarrhea. No fever/chills, chest pain, shortness of breath, dizziness or subsequent syncope. Denies any urinary symptoms or back/flank pain. She reports significant history of hypothyroid and breast cancer, denies any significant abdominal surgeries or history. Related Data Home Medications ?Medication ?Instructions ?Recorded ?Confirmed levothyroxine 100 mcg tablet mcg 12/28/24 oxybutynin chloride 10 mg mg PO 12/28/24 tablet,extended release 24 hr Previous Rx's ?Medication ?Instructions ?Recorded ondansetron 4 mg disintegrating 4 mg PO Q8H PRN nausea and 12/28/24 tablet vomiting 4 days #10 tabs Allergies Allergy/AdvReac Type Severity Reaction Status Date / Time No Known Drug Allergies Allergy Verified 12/28/24 12:41 Review of Systems ROS Status of ROS 10 or more systems reviewed and unremark able except as noted in history and below PFSH PFSH Social History Little interest or pleasure in doing things: not at all Feeling down, depressed, or hopeless: not at all Exam Narrative Exam Narrative: Constituational: Awake/ alert, no apparent distress, well hydrated HENMT: normocephalic, external ears normal, moist oral mucous membranes and oropharynx normal Eyes: EOMI and conjunctivae normal Neck: ROM intact Chest: inspection of chest normal Respiratory: Normal respiratory effort, clear to auscultation bilaterally Cardio: regular rate and regular rhythm GI: soft to palpation and non-tender Back: nontender MSK: ROM intact, +NVI Skin: no rashes or petechiae Neuro: no focal deficits Psych: mental status grossly normal Constitutional Vital Signs, click to edit/add: Last Vital Signs Temp 97.7 F 12/28/24 12:41 Pulse 60 12/28/24 12:41 Resp 16 12/28/24 12:41 BP 177/98 H 12/28/24 12:41 Pulse Ox 100 12/28/24 12:41 O2 Del Method Room Air 12/28/24 12:41 Course Vital Signs Vital signs: Vital Signs Temperature 97.7 F 12/28/24 12:41 Pulse Rate 60 12/28/24 12:41 Respiratory Rate 16 12/28/24 12:41 Blood Pressure 177/98 H 12/28/24 12:41 Pulse Oximetry 100 12/28/24 12:41 Oxygen Delivery Method Room Air 12/28/24 12:41 Temperature 97.7 F 12/28/24 12:41 Pulse Rate 60 12/28/24 12:41 Respiratory Rate 16 12/28/24 12:41 Blood Pressure 177/98 H 12/28/24 12:41 Pulse Oximetry 100 12/28/24 12:41 Oxygen Delivery Method Room Air 12/28/24 12:41 Medical Decision Making MDM Narrative Medical decision making narrative: Patient is a nontoxic well-appearing 59-year-old female who presented to the emergency department today for evaluation for concerns for GI symptoms of nausea/vomiting/diarrhea that began within the past 24 hours. Initial examination vital signs overall stable. On arrival she continued to endorse feeling nauseous and states she did have an episode of emesis just prior to arrival in the ER. She otherwise does not appear to be exhibiting any ischemic symptoms and does appear euvolemic on exam. No acute abdominal findings on exam. EKG without acute changes. Labs otherwise showed no significant leukocytosis, anemia, thrombocytopenia. Electrolytes including renal and hepatic function stable. Normal lipase. UA is negative for UTI. Patient did receive supportive measures of Zofran and on reevaluation she reported some improvement in condition. Clinical impression viral illness, acute possible gastroenteritis. Discussed this with the patient including recommendations for supportive care. Will discharge home with Zofran as needed. Advised on follow- up with patient's primary care provider for reevaluation. Discussed signs and symptoms of any worsening condition and when to consider reevaluation. Patient verbalized an understanding of this and is agreeable with the plan to be discharged home. Medical Records Medical records reviewed: Yes I reviewed the patient's medical records Lab Data Lab results reviewed: Yes I reviewed the patient's lab results Labs: Lab Results 12/28/24 12/28/24 Range/Units 12:55 13:10 WBC 9.7 (4.0-11.0) 10^3/uL RBC 4.48 (4.20-5.40) 10^6/uL Hgb 13.8 (12.0-16.0) g/dL Hct 40.4 (36.0-48.0) % MCV 90.2 (81.0-99.0) fL MCH 30.8 (26.7-34.0) pg MCHC 34.2 (29.9-35.2) g/dL RDW 12.6 (11.0-15.0) % Plt Count 335 (150-450) 10^3/uL MPV 9.6 (9.5-13.5) fL Neut % (Auto) 89.1 H (43.0-75.0) % Lymph % (Auto) 8.0 L (20.5-60.0) % [place] % (Auto) 2.2 (1.7-12.0) % Eos % (Auto) 0.2 L (0.9-7.0) % Baso % (Auto) 0.2 (0.2-2.0) % Neut # (Auto) 8.6 H (1.4-6.5) 10^3/uL Lymph # (Auto) 0.8 L (1.2-3.8) 10^3/uL [place] # (Auto) 0.2 L (0.3-0.8) 10^3/uL Eos # (Auto) 0.0 (0.0-0.7) 10^3/uL Baso # (Auto) 0.0 (0.0-0.1) 10^3/uL Abs Immat Gran (auto) 0.03 (0.00-0.03) 10^3/uL Imm/Tot Granulo (auto) 0.3 (0.0-0.5) % Sodium 140 (136-145) mmol/L Potassium 3.7 (3.5-5.1) mmol/L Chloride 104 (98-107) mmol/L Carbon Dioxide 26.6 (21.0-32.0) mmol/L Anion Gap 13.1 BUN 16.0 (7.0-18.0) mg/dL Creatinine 0.65 (0.55-1.02) mg/dL Est GFR ( Amer) >60 (>=60 mL/min/1.73m^2) Est GFR (Non-Af Amer) >60 (>=60 mL/min/1.73m^2) BUN/Creatinine Ratio 24.6 Glucose 110 H (74-106) mg/dL Calcium 9.1 (8.5-10.1) mg/dL Total Bilirubin 0.4 (0.2-1.0) mg/dL AST 19 (15-37) U/L ALT 29 (14-59) U/L Alkaline Phosphatase 94 (46-116) U/L Total Protein 6.9 (6.4-8.2) g/dL Albumin 3.8 (3.4-5.0) g/dL Globulin 3.1 g/dL Albumin/Globulin Ratio 1.2 Lipase 22.0 (16.0-77.0) U/L Urine Color Yellow (YELLOW) Urine Clarity Clear (CLEAR) Urine pH 6.0 (5.0-9.0) Ur Specific [place] 1.025 (1.005-1.025) Urine Protein Negative (NEG/TRACE) mg/dL Urine Glucose (UA) Negative (NEGATIVE) mg/dL Urine Ketones Trace A (NEGATIVE) mg/dL Urine Occult Blood Trace-i (NEGATIVE) Urine Nitrite Negative (NEGATIVE) Urine Bilirubin Negative (NEGATIVE) Urine Urobilinogen 0.2 (0.2-1.0) EU/dL Ur Leukocyte Esterase Negative (NEGATIVE) Urine RBC 2-5 A (0-2) #/HPF Urine WBC 0-2 A (NONE SEEN) #/HPF Ur Squamous Epith Cells Moderate A (NONE/RARE) #/LPF Urine Crystals None seen (None Seen) #/HPF Urine Bacteria Trace A (NONE SEEN) #/HPF Urine Casts None seen (NONE SEEN) #/LPF Urine Mucus Trace A (NONE SEEN) Ur Culture Indicated? No ECG Data Attestation: I personally reviewed and interpreted this ECG as follows: Discharge Plan Discharge Chief Complaint: Abdominal Pain Clinical Impression: Gastroenteritis Patient Disposition: Home, Self-Care Prescriptions / Home Meds: New ondansetron 4 mg tablet,disintegrating 4 mg PO Q8H PRN (Reason: nausea and vomiting) 4 Days Qty: 10 0RF No Action oxybutynin chloride 10 mg tablet extended release 24hr PO levothyroxine 100 mcg tablet Print Language: Bengali Instructions: Gastroenteritis (DC) Additional Instructions: May take Zofran as needed for any nausea or vomiting. Stay hydrated and drink plenty of fluids. Recommend following a bland diet such as bananas, rice, toast, applesauce, broth, Jell-O -> advance this as tolerated. For any pain or fevers if this occurs may take Tylenol or ibuprofen. Please up with your primary care provider for reevaluation as discussed. May return to the ER with any new or worsening symptoms/concerns. Referrals: Tito Morgan MD [Primary Care Provider, Family Practice] - 1 week
[2024-12-28 13:03] LABS: Basophils Percent Auto 0.2 % (0.2-2.0); Eosinophils Percent Auto 0.2 % (0.9-7.0); Hematocrit 40.4 % (36.0-48.0); Hemoglobin 13.8 g/dL (12.0-16.0); Immature Granulocytes Abs Auto 0.03 10^3/uL (0.00-0.03); Immature Granulocytes Pct Auto 0.3 % (0.0-0.5); Lymphocytes Absolute Auto 0.8 10^3/uL (1.2-3.8); Mean Corpuscular HGB Conc 34.2 g/dL (29.9-35.2); Mean Corpuscular Hemoglobin 30.8 pg (26.7-34.0); Mean Corpuscular Volume 90.2 fL (81.0-99.0); Mean Platelet Volume 9.6 fL (9.5-13.5); Monocytes Absolute Auto 0.2 10^3/uL (0.3-0.8); Monocytes Percent Auto 2.2 % (1.7-12.0); Neutrophils Absolute Auto 8.6 10^3/uL (1.4-6.5); Neutrophils Percent Auto 89.1 % (43.0-75.0); Platelet Count 335 10^3/uL (150-450); Red Blood Count 4.48 10^6/uL (4.20-5.40); Red Cell Distribution Width 12.6 % (11.0-15.0); White Blood Count 9.7 10^3/uL (4.0-11.0)
[2024-12-28] MEDS: ONDANSETRON 4 MG RAPDIS TABLET SL (13:09)
[2024-12-28 13:24] LABS: Bilirubin Urine NEGATIVE (NEGATIVE); Blood Urine TRACE-I (NEGATIVE); Clarity Urine CLEAR (CLEAR); Color Urine YELLOW (YELLOW); Glucose Urine UA NEGATIVE (NEGATIVE); Ketones Urine TRACE mg/dL (NEGATIVE); Leukocyte Esterase Urine NEGATIVE (NEGATIVE); Nitrite Urine NEGATIVE (NEGATIVE); Protein Urine NEGATIVE (NEG/TRACE); Specific Gravity Urine 1.025 (1.005-1.025); Urobilinogen Urine 0.2 EU/dL (0.2-1.0)
[2024-12-28 13:26] LABS: Urine Microscopic Indicated YES
[2024-12-28 13:30] LABS: Alanine Aminotransferase 29 U/L (14-59); Albumin Globulin Ratio 1.2; Albumin Level 3.8 g/dL (3.4-5.0); Alkaline Phosphatase 94 U/L (46-116); Anion Gap 13.1; Aspartate Amino Transferase 19 U/L (15-37); BUN Creatinine Ratio 24.6; Bilirubin Total 0.4 mg/dL (0.2-1.0); Calcium 9.1 mg/dL (8.5-10.1); Carbon Dioxide 26.6 mmol/L (21.0-32.0); Chloride 104 mmol/L (98-107); Estimated GFR (African America >60 (>=60 mL/min/1.73m^2); Estimated GFR (Non-African Ame >60 (>=60 mL/min/1.73m^2); Globulin 3.1 g/dL; Glucose 110 mg/dL (74-106); Potassium 3.7 mmol/L (3.5-5.1); Sodium 140 mmol/L (136-145); Total Protein 6.9 g/dL (6.4-8.2)
[2024-12-28 13:31] LABS: Bacteria Urine TRACE #/HPF (NONE SEEN); Cast Seen? NONE SEEN #/LPF (NONE SEEN); Crystals Seen? None Seen #/HPF (None Seen); Mucus Urine TRACE (NONE SEEN); Squamous Epithelial Cell Urine MODERATE #/LPF (NONE/RARE); Urine Culture Indicated NO; WBC Urine 0-2 #/HPF (NONE SEEN)
== END 2024-12-28 14:01 | disposition home or self-care (01) ==
PROVIDERS: Nurse Practitioner; Emergency Provider Emergency Medicine; PCP Family Medicine
DX: K52.9 Noninfective gastroenteritis and colitis, unspecified (principal); E03.9 Hypothyroidism, unspecified; Z85.3 Personal history of malignant neoplasm of breast
CPT/HCPCS: 36415; 80053; 81001; 83690; 85025; 93005; 99284; Q0162